=== PATIENT | female | born 1995 | race African-American/Black ===

== ENCOUNTER 2018-03-26 17:55 | Emergency (ER) | payer OTHER ==
[~2018-03-26] VITALS: Ht 162.6 cm; Wt 81.7 kg
[2018-03-26 18:57] LABS: URINE BILIRUBIN NEGATIVE (Negative); URINE BLOOD NEGATIVE (Negative); URINE CLARITY CLEAR; URINE COLOR YELLOW; URINE GLUCOSE-RANDOM* NEGATIVE (Negative); URINE KETONES NEGATIVE (Negative); URINE NITRITE-REFLEX NEGATIVE (Negative); URINE PROTEIN (DIPSTICK) NEGATIVE (Negative); URINE SPECIFIC GRAVITY >= 1.030 (1.005-1.035); URINE UROBILINOGEN 0.2 E.U./dl (0.2-1.0)
[2018-03-26 19:01] LABS: URINE LEUKOCYTES-REFLEX 2+ (Negative)
[2018-03-26 19:27] LABS: CASTS None Seen /LPF (None Seen); SQUAMOUS >10 Many /LPF (0-3)
[2018-03-26 19:28] LABS: BACTERIA-REFLEX >30 Many /HPF (None Seen); CRYSTALS None Seen /LPF (None Seen); URINE RBC 0-2 Rare /HPF (0-2); URINE WBC-REFLEX >25 Many /HPF (0-5)
[2018-03-26] MEDS ORDERED: KEFLEX500 M1 PO (19:38)
[2018-03-26] MEDS ORDERED: FLAGYL500 MG PO (19:38)
[2018-03-26 19:44] VITALS: BP 121/65
== END 2018-03-26 19:44 | disposition home or self-care (01) ==
LOC: ER 17:55
PROVIDERS: Emergency Medicine
DX: N76.0 Acute vaginitis (principal); N39.0 Urinary tract infection, site not specified